=== PATIENT | male | born 1945 | race Caucasian/White ===

== ENCOUNTER 2019-03-06 16:26 | Emergency (ER) | payer OTHER ==
[~2019-03-06] VITALS: Ht 165.1 cm; Wt 81.6 kg
[~2019-03-06 16:26] MED LIST: ASPIR-LOW81 M1 PO; IND25 PO; LIPI20 PO; LOT5 PO; TOP50 PO
[2019-03-06 16:30] VITALS: Ht 165.1 cm; Wt 81.6 kg
[2019-03-06 17:20] LABS: BASOPHIL % 0.3 % (0-2); PLATELET COUNT 169 x10^3mcL (130-400); RED CELL DISTRIBUTION WIDTH 13.8 % (11.5-14.5)
[2019-03-06 17:21] LABS: microscopic required? YES; urine erythrocyte NEGATIVE (NEGATIVE)
[2019-03-06 17:32] LABS: ALBUMIN 3.6 g/dL (3.4-5.0); ALKALINE PHOSPHATASE 103 U/L (46-116); ALT/SGPT 54 U/L (16-63); AST/SGOT 46 U/L (15-37); BILIRUBIN TOTAL 1.4 mg/dL (0.20-1.00); CALCIUM 9.1 mg/dL (8.5-10.1); CHLORIDE SERUM 100 mmol/L (98-107); CREATININE SERUM 1.1 mg/dL (0.7-1.3); GLUCOSE SERUM 179 mg/dL (74-106); SODIUM SERUM 140 mmol/L (136-145); TOTAL PROTEIN, SERUM 7.7 g/dL (6.4-8.2)
[2019-03-06 17:37] LABS: POTASSIUM SERUM 2.6 mmol/L (3.5-5.1)
[2019-03-07 00:18] VITALS: BP 127/75
== END 2019-03-07 00:18 | disposition home or self-care (01) ==
LOC: ED 16:26
DX: M10.071 Idiopathic gout, right ankle and foot (principal); N39.0 Urinary tract infection, site not specified; E87.6 Hypokalemia; E86.0 Dehydration; I10 Essential (primary) hypertension; E78.00 Pure hypercholesterolemia, unspecified; Z86.73 Personal history of transient ischemic attack (TIA), and cerebral infarction without residual deficits
CPT/HCPCS: J2543; J3480; J7030; J7050; Q0092